=== PATIENT | female | born 1960 | race Asian ===

== ENCOUNTER 2016-05-02 15:39 | Outpatient (CLI) | payer BC | END 2016-05-02 15:42 | disposition short-term general hospital (02) | LOC: AMB 15:39 | DX: E11.649 Type 2 diabetes mellitus with hypoglycemia without coma (principal) | CPT/HCPCS: A0425; A0427 ==

== ENCOUNTER 2016-05-02 15:46 | Emergency (ER) | payer BC ==
[~2016-05-02] VITALS: Ht 165.1 cm; Wt 108.9 kg
[2016-05-02 15:46] VITALS: TEMP 98.1
[2016-05-02 18:28] VITALS: BP 166/79
== END 2016-05-02 18:25 | disposition home or self-care (01) ==
LOC: ED 15:46
DX: E11.649 Type 2 diabetes mellitus with hypoglycemia without coma (principal); Z79.4 Long term (current) use of insulin
CPT/HCPCS: 99283

== ENCOUNTER 2018-06-25 22:52 | Emergency (ER) | payer BC ==
[~2018-06-25] VITALS: Ht 165.1 cm; Wt 99.8 kg
[2018-06-26 00:28] VITALS: BP 168/87; TEMP 97.9
== END 2018-06-26 00:28 | disposition home or self-care (01) ==
LOC: ED 22:52
DX: M43.6 Torticollis (principal); M50.30 Other cervical disc degeneration, unspecified cervical region
CPT/HCPCS: 96372; 99282; J1885

== ENCOUNTER 2021-05-15 16:42 | Emergency (ER) | payer BC ==
[~2021-05-15] VITALS: Ht 165.1 cm; Wt 97.5 kg
[2021-05-15 19:00] VITALS: BP 154/89; TEMP 98.3
== END 2021-05-15 19:05 | disposition home or self-care (01) ==
LOC: ED 16:42
DX: S61.340A Puncture wound with foreign body of right index finger with damage to nail, initial encounter (principal); W45.8XXA Other foreign body or object entering through skin, initial encounter; Y92.89 Other specified places as the place of occurrence of the external cause
CPT/HCPCS: 90471; 90715; 96372; 99283; J0690; J1885

== ENCOUNTER 2022-07-29 09:02 | Outpatient (CLI) | payer BC | END 2022-07-29 19:19 | disposition home or self-care (01) | LOC: US 09:02 | PROVIDERS: ATTEND Student in an Organized Health Care Education/Training Program | DX: N28.89 Other specified disorders of kidney and ureter (principal); D63.1 Anemia in chronic kidney disease; E83.89 Other disorders of mineral metabolism; E11.9 Type 2 diabetes mellitus without complications; E79.0 Hyperuricemia without signs of inflammatory arthritis and tophaceous disease; R80.8 Other proteinuria; N18.9 Chronic kidney disease, unspecified; I12.9 Hypertensive chronic kidney disease with stage 1 through stage 4 chronic kidney disease, or unspecified chronic kidney disease ==

== ENCOUNTER 2022-09-16 23:41 | Emergency (ER) | payer BC ==
[~2022-09-16] VITALS: Ht 165.1 cm; Wt 89.8 kg
[2022-09-17 02:10] VITALS: BP 125/70; TEMP 98.7
[2022-09-17] MEDS ORDERED: INSU100I SC (05:36)
[2022-09-17] MEDS ORDERED: OZEMPIC4 MG/3 ML SC (05:36)
[2022-09-17] MEDS ORDERED: LISI10TA11 PO (05:36)
[2022-09-17] MEDS ORDERED: LANTUS SOL100 UNIT/M SC (05:37)
== END 2022-09-17 02:10 | disposition home or self-care (01) ==
LOC: ED 23:41
DX: R10.9 Unspecified abdominal pain (principal); R19.4 Change in bowel habit
CPT/HCPCS: 99283